=== PATIENT | male | born 2000 | race Caucasian/White ===

== ENCOUNTER 2024-04-06 13:38 | Emergency (ER) | payer OTHER, SELFPAY ==
--- NOTE | ~2024-04-06 | XR_ITS ---
EXAMINATION: XR chest 1V portable DATE: 04/06/2024 14:37 INDICATION: Shortness of breath TECHNIQUE: frontal view of the chest was obtained. COMPARISON: None FINDINGS: The lungs are clear with no focal airspace opacities, pulmonary edema, pleural effusion or pneumothor ax. The cardiomediastinal silhouette is normal. Visualized bones and soft tissues are unremarkable. IMPRESSION: 1. No acute cardiopulmonary disease. Reviewed, dictated and finalized at location A.
[2024-04-06 14:04] VITALS: BP 136/89; PULSE 100; RESP 18; TEMP 36.9; O2SAT 100
[2024-04-06 14:11] LABS: Glucose Point of Care 89 mg/dl (65-105)
--- NOTE | 2024-04-06 14:39 | ED.GENADULT ---
HPI - General Adult General Chief complaint: Upper Respiratory Infection Stated complaint: not feeling well Time Seen by Provider: 04/06/24 13:55 History of Present Illness HPI narrative: 24-year-old male presenting to the emergency department for evaluation for intermittent lightheaded dizziness. Patient states sometimes when he stands too long he starts to feel dizzy and lightheaded. Patient states has been going on for the last few months. Patient does report history of anxiety. Patient does have follow-up scheduled with his primary care physician in April but did not feel he could wait until then. Related Data Allergies Allergy/AdvReac Type Severity Reaction Status Date / Time No Known Allergies Allergy Unverified 11/08/17 03:36 Review of Systems Review of Systems: All systems reviewed & are unremarkable except as noted in HPI and below PMFSH Family History Family History (Updated 11/20/17 @ 11:12 by DOCTOR UNKNOWN) Mother Family history of malignant neoplasm of bone Social History Social History Smoking status: Never smoker Alcohol intake: never Exam Narrative: APPEARANCE: Well appearing, no pain, no distress, well-nourished. HEAD: normocephalic, atraumatic. EYES: PERRLA/EOMI, conjunctivae clear. NOSE: Normal no drainage EARS:TMS clear with good light reflex. THROAT: Pharynx clear, no exudate. NECK: Supple. No adenopathy, no masses. RESPIRATORY: Airway patent, respirations nonlabored. Clear to auscultation bilaterally, no rales, rhonchi, wheezing. CARDIOVASCULAR: Regular rate and rhythm without murmurs rubs or gallops. ABDOMINAL: Soft, nontender, nondistended, normal bowel sounds MUSCULOSKELETAL: Moves all extremities. Strength/ROM intact, No edema, No calf tenderness. NEURO: Alert. Cranial nerves II through XII intact. SKIN: Warm, dry. Normal Color Course Course Emergency Course: Patient was diagnosed with COVID Vital Signs Vital signs: Vital Signs Temperature 98.5 F 04/06/24 14:04 Pulse Rate 100 04/06/24 14:04 Respiratory Rate 18 04/06/24 14:04 Blood Pressure 136/89 04/06/24 14:04 Pulse Oximetry 100 04/06/24 14:04 Oxygen Delivery Room Air 04/06/24 14:04 Temperature 98.5 F 04/06/24 14:04 Pulse Rate 80 04/06/24 16:58 Respiratory Rate 17 04/06/24 16:58 Blood Pressure 120/78 04/06/24 16:58 Pulse Oximetry 100 04/06/24 16:58 Oxygen Delivery Room Air 04/06/24 16:58 Medical Decision Making MDM Narrative Medical decision making narrative: 24-year-old male presents emergency department for evaluation for upper respiratory infection. Patient is afebrile with no leukocytosis and a stable hemoglobin of 15.8. No acute abnormalities on the patient's CMP patient was positive for COVID. Chest x-ray shows no acute cardiopulmonary abnormality. Patient family updated the results of the workup and they are comfortable the plan for discharge and close follow-up with our primary care physician. All questions concerns were addressed. Differential Diagnosis Differential Diagnosis: Influenza, COVID, RSV, anxiety, dehydration Vital Signs Vital Signs: Vital Signs Temperature 98.5 F 04/06/24 14:04 Pulse Rate 100 04/06/24 14:04 Respiratory Rate 18 04/06/24 14:04 Blood Pressure 136/89 04/06/24 14:04 Pulse Oximetry 100 04/06/24 14:04 Oxygen Delivery Room Air 04/06/24 14:04 Temperature 98.5 F 04/06/24 14:04 Pulse Rate 80 04/06/24 16:58 Respiratory Rate 17 04/06/24 16:58 Blood Pressure 120/78 04/06/24 16:58 Pulse Oximetry 100 04/06/24 16:58 Oxygen Delivery Room Air 04/06/24 16:58 Lab Data Lab results reviewed: Yes I reviewed the patient's lab results. 04/06/24 15:00 04/06/24 15:00 Labs: Lab Results 04/06/24 04/06/24 Range/Units 14:08 15:00 WBC 5.4 (4.5-10.0) K/mm3 RBC 5.10 (4.6-6.20) M/mm3 Hgb 15.8 (14.0-18.0) g/dL Hct 46.2 (42.0-52.0) % MCV
[2024-04-06 15:05] LABS: Basophils Percent Auto 0.2 % (0.2-1.2); Eosinophils Percent Auto 0.2 % (0-4.4); Hematocrit 46.2 % (42.0-52.0); Hemoglobin 15.8 g/dL (14.0-18.0); Immature Granulocyte Absolute 0.02 K/mm3 (0.00-0.031); Immature Granulocyte Percent A 0.4 % (0-0.5); Lymphocytes Absolute Auto 0.47 K/mm3 (0.9-3.2); Lymphocytes Percent Auto 8.6 % (18.3-44.2); Mean Corpuscular HGB Conc 34.2 g/dl (32-36); Mean Corpuscular Volume 90.6 fl (80-100); Mean Platelet Volume 9.4 fl (7.4-10.4); Monocytes Absolute Auto 0.6 K/mm3 (0.1-0.6); Monocytes Percent Auto 11.2 % (2.6-8.5); Neutrophils Absolute Auto 4.3 K/mm3 (1.3-6.7); Neutrophils Percent Auto 79.4 % (45.5-73.1); Platelet Count Result 237 k/mm3 (150-375); Red Cell Distribution Width 11.8 % (11.5-14.5); White Blood Count 5.4 K/mm3 (4.5-10.0)
[2024-04-06 15:11] VITALS: BP 133/75; PULSE 102
[2024-04-06 15:15] VITALS: BP 132/90; PULSE 105
[2024-04-06 15:17] VITALS: BP 129/90; PULSE 114
[2024-04-06 15:18] LABS: Alanine Aminotransferase 16 U/L (6-50); Albumin Level 4.9 g/dL (3.5-5.1); Alkaline Phosphatase 63 U/L (38-126); Anion Gap 12 mmol/L (4-12); Aspartate Amino Transferase 22 U/L (17-59); Bilirubin,Total 0.7 mg/dL (0.2-1.3); Blood Urea Nitrogen 10 mg/dL (9-20); Calcium 9.4 mg/dL (8.4-10.2); Carbon Dioxide 28 mmol/L (22-30); Chloride 100 mmol/L (98-107); Estimated CRCL calculation 107 ml/min; Estimated Glomerular Filt Rate > 60; Glucose 94 mg/dL (65-110); Magnesium 1.7 mg/dL (1.6-2.3); Sodium 140 mmol/L (137-145)
[2024-04-06] MEDS: SODIUM CHLORIDE 0.9% IV 1,000 ML 999 ML IV CONT (15:31)
[2024-04-06 15:41] LABS: Influenza A QL RT-PCR Negative (Negative); Influenza B QL RT-PCR Negative (Negative); RSV RNA, RT-PCR Negative (Negative); SARS-CoV-2 RNA PCR Positive (Negative)
[2024-04-06 16:00] VITALS: RESP 18; O2SAT 100
[2024-04-06 16:58] VITALS: BP 120/78; PULSE 80; RESP 17; O2SAT 100
== END 2024-04-06 16:59 | disposition home or self-care (01) ==
PROVIDERS: Emergency Provider Emergency Medicine
DX: U07.1 COVID-19 (principal); Z20.822 Contact with and (suspected) exposure to COVID-19
CPT/HCPCS: 36415; 71045; 80053; 82948; 83735; 84443; 85025; 87637; 96360; 99283; J7030